=== PATIENT | female | born 1980 | race Caucasian/White ===

== ENCOUNTER 2018-03-19 19:55 | Emergency (ER) | payer BC ==
[2018-03-19] MEDS ORDERED: MORPHINE SULFATE INJ 10 MG/ML VIAL IV ONE ×2 (20:01→20:59)
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
--- NOTE | 2018-03-19 20:47 | RAD ---
EXAM DESCRIPTION: Wrist,Left 2 Views CLINICAL HISTORY: 37 years Female, fracture COMPARISON: None. FINDINGS: There is an acute, displaced fracture of the distal radial metaphysis which appears comminuted with apex volar angulation, and with fracture line possibly extending into the joint space. Dorsal displacement of the main distal fracture fragment of the radius and articulating carpus is noted. There is a questionable acute fracture of the ulnar styloid process. Wrist soft tissue swelling is present. IMPRESSION: 1. Acute, comminuted, displaced and angulated fracture of the distal radial metaphysis possibly involving the joint space. 2. Questionable acute fracture of the ulnar styloid process. Electronically signed by: Max Huynh MD 03/19/2018 8:45 PM CDT
[2018-03-19 22:20] VITALS: BP 123/71; TEMP 98.3; O2SAT 98
== END 2018-03-19 22:15 | disposition short-term general hospital (02) ==
LOC: ER 19:55
DX: S52.502A Unspecified fracture of the lower end of left radius, initial encounter for closed fracture (principal); W18.39XA Other fall on same level, initial encounter; Y92.814 Boat as the place of occurrence of the external cause
CPT/HCPCS: 73100; J2270